=== PATIENT | female | born 1980 | race Caucasian/White ===

== ENCOUNTER 2018-11-11 19:58 | Emergency (ER) | payer MEDICAID, SELFPAY ==
[~2018-11-11] VITALS: Ht 165.1 cm; Wt 104.3 kg
[2018-11-11] MEDS ORDERED: LORazepam Inj 2mg/ml 1ml IV ONE (20:15)
--- NOTE | 2018-11-11 20:15 | NUR ---
ED Nurse Note: RECIEVED PT BIBA FROM HOME WITH C/O CHEST PAIN AFTER SMOKING COCAINE LAST NIGHT, PT STATES PAIN HAS BEEN ALL DAY AT 7/10, RADIATING TO LEFT ARM, PT IS AWAKE, ALERT AND ORIENTED X 4, AMBULATORY, DENIES ANY OTHER DISCOMFORTS OR COMPLAINTS, PT IMMEDIATELY GOWNED AND PLACED ON CARDIAC MONITORIHNG, WILL RESUME CARE ORDERED AND CONTINUE TO CLOSELY MONITOR.
[2018-11-11] MEDS ORDERED: LORazepam 1mg tab ORAL ONE (20:45)
[2018-11-11 21:16] LABS: ANION GAP 12 mmol/L (5-15); BLOOD UREA NITROGEN 15 mg/dL (7-18); CALCIUM 8.8 MG/DL (8.5-10.1); CARBON DIOXIDE 26 MMOL/L (21-32); CHLORIDE 101 MMOL/L (98-107); CREATININE 0.8 MG/DL (0.55-1.30); POTASSIUM 4.3 MMOL/L (3.5-5.1); SODIUM 139 MMOL/L (136-145)
[2018-11-11 21:18] LABS: BASOPHILS % (AUTO) 1.2 % (0.0-2.0); EOSINOPHILS % (AUTO) 1.5 % (0.0-3.0); HEMATOCRIT 44.9 % (37.0-47.0); HEMOGLOBIN 14.8 G/DL (12.0-16.0); LYMPHOCYTES % (AUTO) 33.1 % (20.0-45.0); MEAN CORPUSCULAR VOLUME 91 FL (80-99); MONOCYTES % (AUTO) 5.7 % (1.0-10.0); NEUTROPHILS % (AUTO) 58.6 % (45.0-75.0); PLATELET COUNT 236 K/UL (150-450); RED BLOOD COUNT 4.96 M/UL (4.20-5.40); RED CELL DISTRIBUTION WIDTH 13.6 % (11.6-14.8); WHITE BLOOD COUNT 10.1 K/UL (4.8-10.8)
[2018-11-11 21:28] LABS: APPEARANCE,URINE CLEAR; BILIRUBIN, URINE NEGATIVE (NEGATIVE); COLOR,URINE PALE YELLOW; GLUCOSE, URINE (UA) NEGATIVE (NEGATIVE); KETONES,URINE NEGATIVE (NEGATIVE); LEUKOCYTE ESTERASE ,URINE 1+ (NEGATIVE); NITRITE,URINE NEGATIVE (NEGATIVE); PH,URINE 6 (4.5-8.0); PROTEIN,URINE NEGATIVE (NEGATIVE); UROBILINOGEN,URINE NORMAL MG/DL (0.0-1.0)
[2018-11-11 21:28] LABS: ALANINE AMINOTRANSFERASE 34 U/L (12-78); ALBUMIN 3.7 G/DL (3.4-5.0); ALKALINE PHOSPHATASE 94 U/L (46-116); ASPARTATE AMINO TRANSFERASE 25 U/L (15-37); BILIRUBIN,TOTAL 0.4 MG/DL (0.2-1.0); CKMB 0.8 NG/ML (0.0-3.6); CREATINE KINASE 84 U/L (26-308)
[2018-11-11 21:30] VITALS: BP 141/86
--- NOTE | 2018-11-11 21:30 | NUR ---
ER DISCHARGE NOTE: Patient is cleared to be discharged per ERMD, pt is aox4, on room air, with stable vital signs. pt was given dc and prescription instructions, pt was able to verbalize understanding, pt id band removed without complications. pt is able to ambulate with steady gait. pt took all belongings.
[2018-11-11 21:35] VITALS: BP 141/86
--- NOTE | 2018-11-11 22:10 | Emergency Room Report ---
History of Present Illness General Chief Complaint: Chest Pain Source: Patient Present Illness HPI 38-year-old female presents to ED complaining of chest pain. Brought in by EMS. States chest pain started last night after using cocaine. Chest pain is sharp, midsternal, 7 out of 10, nonradiating. Denies shortness of breath. Given nitroglycerin 2 and aspirin in the field by EMS without resolution of symptoms. Denies alcohol use. Denies cardiac history. No other aggravating relieving factors. Denies any other associated symptoms Allergies: Coded Allergies: IBUPROFEN (Verified Allergy, Mild, 01/21/09) AMOXICILLIN (Verified Allergy, Unknown, RASH, 01/21/09) ASPIRIN (Verified Allergy, Unknown, RASH, 01/21/09) HALOPERIDOL (Unverified Allergy, Unknown, 11/11/18) KETOROLAC (Verified Allergy, Unknown, RASH, 01/21/09) PENICILLINS (Unverified Allergy, Unknown, 11/11/18) SULFA (SULFONAMIDE ANTIBIOTICS) (Unverified Allergy, Unknown, 11/11/18) SULFONYLUREAS (Verified Allergy, Unknown, RASH, 01/21/09) PROMETHAZINE (Verified Adverse Reaction, Severe, DYSTONIA, 01/21/09) METOCLOPRAMIDE (Verified Adverse Reaction, Unknown, DYSTONIA, 01/21/09) PROCHLORPERAZINE (Verified Adverse Reaction, Unknown, DYSTONIA, 01/21/09) Patient History Past Medical History: none Past Surgical History: none Pertinent Family History: none Social History: Reports: drug use; Denies: smoking, alcohol use Last Menstrual Period: 11/11/18 Now: No Immunizations: UTD Reviewed Nursing Documentation: PMH: Agreed; PSxH: Agreed Nursing Documentation-PMH Past Medical History: No History, Except For Review of Systems All Other Systems: negative except mentioned in HPI Physical Exam Vital Signs Date Time Temp Pulse Resp B/P (MAP) Pulse Ox O2 Delivery O2 Flow Rate FiO2 11/11/18 19:51 98.4 86 12 152/106 99 Room Air Sp02 EP Interpretation: reviewed, normal General Appearance: no apparent distress, alert, GCS 15, non-toxic Head: normocephalic, atraumatic Eyes: bilateral eye normal inspection, bilateral eye PERRL ENT: hearing grossly normal, normal pharynx, no angioedema, normal voice Neck: full range of motion, supple/symm/no masses Respiratory: chest non-tender, lungs clear, normal breath sounds, speaking full sentences Cardiovascular #1: regular rate, rhythm, no edema Cardiovascular #2: 2+ carotid (R), 2+ carotid (L), 2+ radial (R), 2+ radial (L) , 2+ dorsalis pedis (R), 2+ dorsalis pedis (L) Gastrointestinal: normal bowel sounds, non tender, soft, non-distended, no guarding, no rebound Rectal: deferred Genitourinary: normal inspection, no CVA tenderness Musculoskeletal: back normal, gait/station normal, normal range of motion, non- tender Neurologic: alert, oriented x3, responsive, motor strength/tone normal, sensory intact, speech normal Psychiatric: judgement/insight normal, memory normal, mood/affect normal, no suicidal/homicidal ideation Reflexes: 3+ bicep (R), 3+ bicep (L), 3+ tricep (R), 3+ tricep (L), 3+ knee (R) , 3+ knee (L) Skin: normal color, no rash, warm/dry, well hydrated Lymphatic: no adenopathy Medical Decision Making Diagnostic Impression: Primary Impression: Cocaine abuse Additional Impression: Chest pain Qualified Codes: R07.9 - Chest pain, unspecified ER Course Hospital Course 38-year-old F presents ED complaining of chest pain x 1 day after cocaine use Differential diagnoses include: Rib fracture, [place]/unstable angina, contusion, muscle strain Clinical course Patient placed on stretcher. After initial history and physical I ordered labs , EKG, chest x-ray, ativan labs reviewed- all electrolytes normal, troponins negative, no leukocytosis, hemoglobin/hematocrit stable, cocaine + EKG - NSR, no acute ischemic changes interpreted by me Chest x-ray-no cardiomegaly, no rib fracture, no pneumothorax, no acute process Discussed findings with patient. Given negative troponin, negative CK-MB, normal EKG and timeline of chest pain I believe patient can be safely discharged at this time. Normal vitals. Safe for discharge or close outpatient follow-up. Sometimes PMD. We'll provide referrals I. I feel this is a highly complex case requiring extensive working including EKG/Rhythm strip, Xray/CT/US, Blood/urine lab work, repeat exams while in ED, and administration of strong opiates/narcotics for pain control, admission to hospital or close patient follow up. Diagnosis - chest pain, cocaine use Stable and discharged to home. Instructed to followup with PMD. Return to ED if symptoms recur or worsen Labs Test 11/11/18 20:40 11/11/18 20:50 White Blood Count 10.1 K/UL (4.8-10.8) Red Blood Count 4.96 M/UL (4.20-5.40) Hemoglobin 14.8 G/DL (12.0-16.0) Hematocrit 44.9 % (37.0-47.0) Mean Corpuscular Volume 91 FL (80-99) Mean Corpuscular Hemoglobin 29.8 PG (27.0-31.0) Mean Corpuscular Hemoglobin Concent 32.9 G/DL (32.0-36.0) Red Cell Distribution Width 13.6 % (11.6-14.8) Platelet Count 236 K/UL (150-450) Mean Platelet Volume 6.5 FL (6.5-10.1) Neutrophils (%) (Auto) 58.6 % (45.0-75.0) Lymphocytes (%) (Auto) 33.1 % (20.0-45.0) Monocytes (%) (Auto) 5.7 % (1.0-10.0) Eosinophils (%) (Auto) 1.5 % (0.0-3.0) Basophils (%) (Auto) 1.2 % (0.0-2.0) Sodium Level 139 MMOL/L (136-145) Potassium Level 4.3 MMOL/L (3.5-5.1) Chloride Level 101 MMOL/L (98-107) Carbon Dioxide Level 26 MMOL/L (21-32) Anion Gap 12 mmol/L (5-15) Blood Urea Nitrogen 15 mg/dL (7-18) Creatinine 0.8 MG/DL (0.55-1.30) Estimat Glomerular Filtration Rate > 60 mL/min (>60) Glucose Level 72 MG/DL (74-106) Calcium Level 8.8 MG/DL (8.5-10.1) Total Bilirubin 0.4 MG/DL (0.2-1.0) Aspartate Amino Transf (AST/SGOT) 25 U/L (15-37) Alanine Aminotransferase (ALT/SGPT) 34 U/L (12-78) Alkaline Phosphatase 94 U/L (46-116) Total Creatine Kinase 84 U/L (26-308) Creatine Kinase MB 0.8 NG/ML (0.0-3.6) Creatine Kinase MB Relative Index 0.9 Troponin I 0.000 ng/mL (0.000-0.056) Total Protein 7.5 G/DL (6.4-8.2) Albumin 3.7 G/DL (3.4-5.0) Globulin 3.8 g/dL Albumin/Globulin Ratio 1.0 (1.0-2.7) Urine Color Pale yellow Urine Appearance Clear Urine pH 6 (4.5-8.0) Urine Specific [place] 1.015 (1.005-1.035) Urine Protein Negative (NEGATIVE) Urine Glucose (UA) Negative (NEGATIVE) Urine Ketones Negative (NEGATIVE) Urine Blood 3+ (NEGATIVE) Urine Nitrite Negative (NEGATIVE) Urine Bilirubin Negative (NEGATIVE) Urine Urobilinogen Normal MG/DL (0.0-1.0) Urine Leukocyte Esterase 1+ (NEGATIVE) Urine RBC 2-4 /HPF (0 - 2) Urine WBC 0-2 /HPF (0 - 2) Urine Squamous Epithelial Cells Few /LPF (NONE/OCC) Urine Bacteria Few /HPF (NONE) Urine HCG, Qualitative Negative (NEGATIVE) Urine Opiates Screen Negative (NEGATIVE) Urine Barbiturates Screen Negative (NEGATIVE) Phencyclidine (PCP) Screen Negative (NEGATIVE) Urine Amphetamines Screen Negative (NEGATIVE) Urine Benzodiazepines Screen Negative (NEGATIVE) Urine Cocaine Screen Positive (NEGATIVE) Urine Marijuana (THC) Screen Negative (NEGATIVE) EKG Diagnostic Results Rate: normal Rhythm: NSR ST Segments: no acute changes ASA given to the pt in ED: No - given by ems Rhythm Strip Diag. Results EP Interpretation: yes Rhythm: NSR, no PVC's, no ectopy Chest X-Ray Diagnostic Results Chest X-Ray Diagnostic Results : Chest X-Ray Ordered: Yes # of Views/Limited/Complete: 1 View Indication: Chest Pain EP Interpretation: Yes Interpretation: no pneumothorax, no acute cardiopulmonary disease Impression: No acute disease Electronically Signed by: Electronically signed by Manolo Grullon MD Last Vital Signs Date Time Temp Pulse Resp B/P (MAP) Pulse Ox O2 Delivery O2 Flow Rate FiO2 4/15/19 21:35 98.4 83 12 141/86 99 Room Air Status: improved Disposition: HOME, SELF-CARE Condition: Stable [facility]: [facility] Patient Instructions: Finding Treatment for Addiction Manolo Grullon MD Nov 11, 2018 22:10
--- NOTE | 2018-11-12 09:10 | Diagnostic Imaging Report ---
Indication: Chest pain Technique: One view of the chest Comparison: none Findings: The heart is enlarged. The lungs and pleural spaces are clear. Impression: Cardiomegaly. No acute process
--- NOTE | 2018-11-12 18:22 | Cardiology Report ---
APPROVED REPORT EKG Measurement Heart [id number] VT [id number] Normal sinus rhythm Possible Left atrial enlargement Cannot rule out Anterior infarct, age undetermined Abnormal ECG
== END 2018-11-11 21:35 | disposition home or self-care (01) ==
LOC: EDBD 19:58 → EMR 20:36
DX: F14.10 Cocaine abuse, uncomplicated (principal); R07.9 Chest pain, unspecified; Z88.6 Allergy status to analgesic agent; Z88.0 Allergy status to penicillin; Z88.2 Allergy status to sulfonamides; Z88.8 Allergy status to other drugs, medicaments and biological substances; I51.7 Cardiomegaly
CPT/HCPCS: 36415; 71045; 80053; 80307; 81003; 81025; 82550; 82553; 84484; 85025; 93005; 99284